=== PATIENT | female | born 1990 | race Two or more races ===

== ENCOUNTER 2021-09-20 09:00 | Inpatient (IN) | payer OTHER ==
[~2021-09-20] VITALS: Ht 160 cm; Wt 72.6 kg
== END 2021-09-25 15:41 | disposition home or self-care (01) | DRG 743 ==
LOC: O/R 09-23 05:50 → SURH 09-23 05:50 → O/R 09-24 09:07 → SURH 09-24 09:11
PROVIDERS: ADMIT Obstetrics & Gynecology Gynecologic Oncology; ATTEND Obstetrics & Gynecology Gynecologic Oncology
PROC: 0UT74ZZ Resection of Bilateral Fallopian Tubes, Percutaneous Endoscopic Approach (ICD-10-PCS; 2021-09-23)
PROC: 0UT94ZZ Resection of Uterus, Percutaneous Endoscopic Approach (ICD-10-PCS; principal; 2021-09-23 16:45)
DX: N72 Inflammatory disease of cervix uteri (principal); N80.0 Endometriosis of uterus; N87.9 Dysplasia of cervix uteri, unspecified; N88.8 Other specified noninflammatory disorders of cervix uteri; N83.8 Other noninflammatory disorders of ovary, fallopian tube and broad ligament

== ENCOUNTER 2025-03-06 09:23 | Day surgery (SDC) | payer OTHER ==
[2025-03-05 10:04] LABS: COVID-19 AG NEGATIVE (NEGATIVE)
[2025-03-06 10:15] LABS: RH POSITIVE
[2025-03-06] MEDS ORDERED: METRONIDAZOLE/SODIUM CHLORIDE 500 MG/100 ML PIGGYBACK IV ONE (15:09)
[2025-03-06] MEDS ORDERED: CEFAZOLIN SODIUM 1,000 MG VIAL ONE (15:10)
[2025-03-06] MEDS ORDERED: POVIDONE-IODINE 118 ML BOTT TOP ONE (16:58)
[2025-03-06] MEDS ORDERED: DEXAMETHASONE SODIUM PHOSPHATE 4 MG/ML VIAL ONE (17:39)
[2025-03-06] MEDS ORDERED: SUGAMMADEX SODIUM 200 MG/2 ML VIAL IV ONE (17:40)
[2025-03-06] MEDS ORDERED: MORPHINE SULFATE 4 MG/ML CARTRIDGE IV ONE (21:15)
[2025-03-06 22:21] VITALS: BP 116/77; O2SAT 100
== END 2025-03-06 22:20 | disposition home or self-care (01) ==
LOC: CIR.AMB 09:23
PROVIDERS: ATTEND Obstetrics & Gynecology Gynecologic Oncology
DX: N83.01 Follicular cyst of right ovary (principal); Z88.6 Allergy status to analgesic agent; G43.909 Migraine, unspecified, not intractable, without status migrainosus

== ENCOUNTER 2025-03-12 21:15 | Emergency (ER) | payer OTHER ==
[~2025-03-12] VITALS: Ht 160 cm; Wt 73.5 kg
[2025-03-12] MEDS ORDERED: METOCLOPRAMIDE HCL 10 MG TABLET PO ONE (22:15)
[2025-03-12] MEDS ORDERED: 0.9 % SODIUM CHLORIDE 1,000 ML IV SCH (22:15)
[2025-03-12] MEDS ORDERED: KETOROLAC TROMETHAMINE 30 MG VIAL IV ONE (22:15)
[2025-03-12] MEDS ORDERED: METOCLOPRAMIDE HCL 5 MG/ML VIAL ONE (22:24)
[2025-03-12] MEDS ORDERED: KETOROLAC TROMETHAMINE 30 MG VIAL ONE (22:24)
[2025-03-12] MEDS ORDERED: METOCLOPRAMIDE HCL 10 MG in DEXTROSE 5 % IN WATER 50 ML IV ONE (22:30)
[2025-03-12 23:15] LABS: HEMATOCRIT 30.5 % (36.0-45.00); HEMOGLOBIN 10.7 g/dL (12.0-15.00); MEAN CORPUSCULAR HEMOGLOBIN 30.1 pg (27.00-32.0); MEAN CORPUSCULAR HGB CONC 34.9 g/dl (32.0-36.0); PLATELET COUNT 227 K/uL (150-450); RED BLOOD COUNT 3.55 M/uL (4.00-6.00); RED CELL DISTRIBUTION WIDTH 13.1 % (11.5-14.5)
[2025-03-12 23:35] LABS: PH,URINE 5.5 (5.0-8.0); URINE APPEARANCE Clear; URINE BILIRRUBIN Negative (NEGATIVE); URINE BLOOD Small; URINE COLOR Yellow; URINE GLUCOSE Negative (NEGATIVE); URINE KETONE Trace (NEGATIVE); URINE LEUKOCYTE Negative; URINE NITRATE Negative; URINE PROTEIN Trace (NEGATIVE)
[2025-03-12 23:39] LABS: URINE BACTERIA 315.7 uL (0.0-1933); URINE EPITHELIAL CELLS 15.3 uL (0.0-38.8); URINE RBC 81.4 uL (0.0-20.8); URINE WBC 7.7 uL (0.0-23.2)
[2025-03-12 23:40] LABS: BILIRUBIN TOTAL 0.32 mg/dL (0.3-1.2); CALCIUM 8.5 mg/dL (8.5-10.1); CREATININE SERUM 1.03 mg/dL (0.55-1.02); GFR 62.1; GLOBULINA 3.8 G/DL (2.4-3.5); POTASSIUM 3.26 mEq/L (3.5-5.1); TOTAL PROTEIN 7.8 gm/dL (6.4-8.2)
[2025-03-12 23:44] LABS: URINE CAST 1.32 uL (0.0-1.40)
[2025-03-13] MEDS ORDERED: KETOROLAC TROMETHAMINE 30 MG VIAL IV STA (05:18)
[2025-03-13] MEDS ORDERED: KETOROLAC TROMETHAMINE 30 MG VIAL ONE (05:32)
== END 2025-03-13 11:09 | disposition home or self-care (01) ==
LOC: ER 21:16
PROVIDERS: General Practice
DX: R10.2 Pelvic and perineal pain (principal); Z88.8 Allergy status to other drugs, medicaments and biological substances
CPT/HCPCS: 36415; 74177; Q9965